=== PATIENT | male | born 2000 | race Caucasian/White ===

== ENCOUNTER 2020-03-23 21:44 | Emergency (ER) | payer SELFPAY ==
[2020-03-23] MEDS ORDERED: MAG HYDROX/AL HYDROX/SIMETH ES 30 ML SUSP UDCUP ONE (22:14)
[2020-03-23] MEDS ORDERED: LIDOCAINE HCL 2% VISCOUS 15 ML UDCUP ONE (22:14)
== END 2020-03-23 23:03 ==
LOC: EDH 21:44
DX: K29.70 Gastritis, unspecified, without bleeding (principal); Z90.49 Acquired absence of other specified parts of digestive tract; Z87.891 Personal history of nicotine dependence